=== PATIENT | female | born 1995 | race Caucasian/White ===

== ENCOUNTER 2020-07-07 15:23 | Emergency (ER) | payer OTHER ==
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
[2020-07-07] MEDS ORDERED: KETOROLAC TROMETHAMINE 60 MG/2 ML SDV IM ONE ×2 (16:38→21:15)
--- NOTE | 2020-07-07 16:38 | ER Document Report ---
ED Headache - General Chief Complaint: Headache >24 hrs old Stated Complaint: HEADACHE Time Seen by Provider: 07/07/20 15:32 Mode of Arrival: Ambulatory Information source: Patient Notes: Patient is a 25-year-old female comes emergency room with a 5-day onset of headache. Patient states she has no real history of headaches and that she is tried everything [id number] to include Tylenol Motrin sinus congestion medications and she is not getting better. She went to a walk-in clinic ye sterday where they put her on a antinausea medication that they told her would make her feel tired and sleepy not to try to drive with it. She said they gave her 4 pills to take yesterday and 2 to take today and it has not helped with the nausea or the headache. She contacted them back and they said if that did not work then she needs to go ahead and see emergency room. Patient denies any visual changes she denies any vomiting but has had severe nausea. She denies any other medical problems. She does state that she vapes. - HPI Patient complains to provider of: Headache, "Migraine", Facial pain Patient reports: Hx chronic headaches Onset: Last week Onset was: Gradual Timing: Worse Quality of pain: Achy, Throbbing Severity: Severe Pain Level: 4 Context: denies: Head injury, Insect bite, Meningitis exposure, Tick bite Preceding symptoms: denies: Typical of prior aura(s), Visual disturbance Associated symptoms: Lightheaded, Nausea/vomiting Exacerbated by: Light, Noise Similar symptoms previously: Yes Recently seen / treated by doctor: No - Related Data Allergies/Adverse Reactions: No Known Allergies Allergy (Unverified 07/07/20 16:34) Past Medical History - General Information source: Patient - Social History Smoking Status: Current Every Day Smoker - Acute the same time Chew tobacco use (# tins/day): No Frequency of alcohol use: None Drug Abuse: None Lives with: Family Family History: Reviewed & Not Pertinent - Ligament Akintayo 73, platelet Patient has homicidal ideation: No Review of Systems - Review of Systems Constitutional: No symptoms reported EENT: Nose discharge, Sinus pressure, Sinus discharge Cardiovascular: No symptoms reported Respiratory: No symptoms reported Gastrointestinal: No symptoms reported Genitourinary: No symptoms reported Female Genitourinary: No symptoms reported Musculoskeletal: No symptoms reported Skin: No symptoms reported Hematologic/Lymphatic: No symptoms reported Neurological/Psychological: No symptoms reported, Headaches -: Yes All other systems reviewed and negative Physical Exam - Vital signs Vitals: Temp 98.7 F 07/07/20 15:23 Interpretation: Hypertensive, Other - Patient's vital signs were not crossing over but on arrival patient's vital signs here showed an heart rate of 78 blood pressure 150/61 sat of 100% on room air. - Notes Notes: PHYSICAL EXAMINATION: GENERAL: Patient is a well-nourished well-developed 25-year-old female no apparent distress on examination although she looks uncomfortable. HEAD: , normocephalic. EYES: Pupils equal round and reactive to light, extraocular movements intact, conjunctiva are normal. ENT: Examination upper airway showed nasal mucosa be very erythematous and edematous with bilateral nasal congestion noted. Moderate tenderness to palpation of the maxillary sinuses greater on the left than the right and frontal sinuses greater on the left than the right. Further evaluation of the ears show bilateral TMs bulging with no air-fluid levels noted. Posterior pharynx shows moderate erythema no exudate noted no enlarged tonsils no exudates. Uvula is midline with erythema but no exudate and airways patent. NECK: Normal range of motion, supple without lymphadenopathy LUNGS: Breath sounds clear to auscultation bilaterally and equal. No wheezes rales or rhonchi. HEART: Regular rate and rhythm without murmurs ABDOMEN: Soft, nontender, nondistended abdomen. No guarding, no rebound. No masses appreciated. Musculoskeletal: Normal range of motion, no pitting or edema. No cyanosis. NEUROLOGICAL: Normal speech, normal gait. Normal sensory, motor exams PSYCH: Normal mood, normal affect. SKIN: Warm, Dry, normal turgor, no rashes or lesions noted. Course - Re-evaluation Re-evalutation: 07/07/20 21:[address] were all normal. Given her presentation with the reproducible sinus tenderness to palpation and her darkened sunken eyes believe this to be more of a sinus related type of illness. I will place her on some Flonase and some Sudafed. Do not believe that antibiotics are necessary at this time. Also place her on a little Fioricet for her headache. Have informed her she needs to follow-up with a primary care doctor and possibly a neurologist if these headaches continue on. - Vital Signs Vital signs: Temp Pulse Resp BP Pulse Ox 98.7 F 78 16 150/61 H 100 07/07/20 15:26 07/07/20 15:26 07/07/20 15:26 07/07/20 15:26 07/07/20 15:26 - Laboratory Result Diagrams: 07/07/20 16:43 07/07/20 16:43 Discharge - Discharge Clinical Impression: Sinusitis Qualifiers: Sinusitis location: unspecified location Chronicity: acute Recurrence: non- recurrent Qualified Code(s): J01.90 - Acute sinusitis, unspecified Headache Qualifiers: Headache type: unspecified Headache chronicity pattern: acute headache Intractability: not intractable Qualified Code(s): R51 - Headache Condition: Stable Disposition: HOME, SELF-CARE Instructions: Headache ([facility]), Oral Narcotic Medication ([facility]), Toradol Injection ([facility]) Additional Instructions: As we discussed I believe you have a case of some very bad sinuses but did not need antibiotics at this time. Placed you on some Flonase nasal spray to see if this helps open you up. Also I am giving you some Fioricet as we discussed use it for bedtime for sleep if needed. If the headaches continue on you need to see a neurologist. You already have an established PCP that you will establish with sometime in first July so keep that appointment. In the meantime should he have any concerns or problems of the headaches get worse return to ER for reevaluation. Prescriptions: Butalb/Acetaminophen/Caffeine [Fioricet 50-300-40 mg Capsule] 1 cap PO Q4 PRN #20 cap PRN Reason: Fluticasone Propionate [Flonase Nasal Crook 50 Mcg/Crook 16 gm] 2 sprays NASL Q12 #1 inhaler Pseudoephedrine HCl [Sudafed 12 Hour] 120 mg PO BID PRN #20 tablet.er PRN Reason: Ondansetron [Zofran Odt 4 mg Tablet] 1 - 2 tab PO Q4H PRN #15 tab.rapdis PRN Reason: For Nausea/Vomiting Forms: Elevated Blood Pressure Referrals: [facility] [Provider Group] - Follow up as needed
[2020-07-07 17:02] LABS: ABSOLUTE BASOPHILS # (AUTO) 0.1 10^3/uL (0.0-0.2); ABSOLUTE EOSINOPHILS # (AUTO) 0.1 10^3/uL (0.0-0.6); ABSOLUTE LYMPHOCYTES (AUTO) 3.3 10^3/uL (0.5-4.7); ABSOLUTE MONOCYTES (AUTO) 0.7 10^3/uL (0.1-1.4); ABSOLUTE NEUT (AUTO) 4.4 10^3/uL (1.7-8.2); BASOPHILS % (AUTO) 0.9 % (0-2); EOSINOPHILS % (AUTO) 1.4 % (0-6); HEMATOCRIT 39.9 % (36.0-47.0); HEMOGLOBIN 13.4 g/dL (12.0-15.5); MEAN CORPUSCULAR HEMOGLOBIN 29.6 pg (27.0-33.4); MEAN CORPUSCULAR HGB CONC 33.7 g/dL (32.0-36.0); MEAN CORPUSCULAR VOLUME 88 fl (80-97); MONOCYTES % (AUTO) 8.5 % (3-13); PLATELET COUNT 228 10^3/uL (150-450); RED BLOOD COUNT 4.53 10^6/uL (3.72-5.28); RED CELL DISTRIBUTION WIDTH 12.4 % (11.5-14.0); SEGMENTED NEUTROPHILS % (AUTO) 51.2 % (42-78); TOTAL CELLS COUNTED % (AUTO) 100 %; WHITE BLOOD COUNT 8.6 10^3/uL (4.0-10.5)
[2020-07-07 17:05] LABS: APPEARANCE,URINE CLEAR; BILIRUBIN,URINE NEGATIVE (NEGATIVE); COLOR,URINE STRAW; GLUCOSE, URINE NEGATIVE (NEGATIVE); KETONES,URINE NEGATIVE (NEGATIVE); LEUKOCYTE ESTERASE,URINE NEGATIVE (NEGATIVE); NITRITE,URINE NEGATIVE (NEGATIVE); PROTEIN,URINE NEGATIVE (NEGATIVE); URINE SPECIFIC GRAVITY 1.005; UROBILINOGEN,URINE NEGATIVE mg/dL (<2.0)
[2020-07-07 17:14] LABS: ALBUMIN 4.6 g/dL (3.5-5.0); ALKALINE PHOSPHATASE 46 U/L (38-126); ANION GAP 7 (5-19); ASPARTATE AMINO TRANSFERASE 24 U/L (14-36); BILIRUBIN,TOTAL 0.2 mg/dL (0.2-1.3); BLOOD UREA NITROGEN 10 mg/dL (7-20); CALCIUM 9.3 mg/dL (8.4-10.2); CARBON DIOXIDE 28 mmol/L (22-30); CHLORIDE 104 mmol/L (98-107); GLUCOSE 77 mg/dL (75-110); POTASSIUM 4.1 mmol/L (3.6-5.0); TOTAL PROTEIN 7.7 g/dL (6.3-8.2)
[2020-07-07 17:19] LABS: URINE AMPHETAMINES SCREEN NEGATIVE; URINE BARBITURATES SCREEN NEGATIVE; URINE BENZODIAZEPINES SCREEN NEGATIVE; URINE COCAINE SCREEN NEGATIVE; URINE MARIJUANA (THC) SCREEN NEGATIVE; URINE METHADONE SCREEN NEGATIVE; URINE PHENCYCLIDINE SCREEN NEGATIVE
--- NOTE | 2020-07-07 20:39 | RADIOLOGY REPORT (SQ) ---
EXAM DESCRIPTION: RadLex: CT HEAD WITHOUT IV CONTRAST CLINICAL HISTORY: 25 years Female; Headache/new onset; TECHNIQUE: Noncontrast CT head. All CT scans at this facility use dose modulation, iterative reconstruction, and/or weight based dosing when appropriate to reduce radiation dose to as low as reasonably achievable. COMPARISON: None. FINDINGS: Barnes matter, white matter, ventricles, and cisterns are within normal limits. No acute hemorrhage or mass effect. Visualized portions of paranasal sinuses and mastoids are clear. Visualized portions of the calvarium are within normal limits. IMPRESSION: 1. Normal noncontrast CT of the brain
[2020-07-07] MEDS ORDERED: ONDANSETRON 4 MG TAB.RAPDIS PO ONE (21:16)
[2020-07-08 07:23] VITALS: BP 126/72
== END 2020-07-07 22:00 | disposition home or self-care (01) ==
LOC: ER 15:23
DX: J01.90 Acute sinusitis, unspecified (principal); R51 Headache; F17.200 Nicotine dependence, unspecified, uncomplicated
CPT/HCPCS: 99285; 96372; 36415; 85025; 81025; 80053; 81001; 80307; 70450; J1885; S0119